=== PATIENT | female | born 1990 | race Caucasian/White ===

== ENCOUNTER 2020-04-22 10:20 | Outpatient (CLI) | payer OTHER, SELFPAY ==
[2020-04-22] VITALS (13 sets, daily range): BP systolic 135–153; BP diastolic 72–88; PULSE 75–90; O2SAT 82–99; BMI 33.5
[2020-04-22 11:07] LABS: Hemoglobin 10.7 g/dL (12.0-15.0); Mean Corp Hgb Conc 34.5 g/dL (32-36); Mean Corpuscular Hgb 31.9 pg (27.0-32.0); Mean Corpuscular Volume 92.5 fL (81-99); Mean Platelet Vol. 9.3 fl (6.2-12.0); Platelet Count 232 K/mm3 (150-450); RBC Distribution Width CV 12.8 % (11.6-14.6); RBC Distribution Width SD 42.7 fl (35.1-43.9); Red Blood Count 3.35 M/mm3 (4.2-5.4); White Blood Count 10.6 K/mm3 (4.4-11.0)
[2020-04-22 11:27] LABS: Protein, Urine (Random) 28.5 mg/dL (<11.9); Protein:Creat Ratio 190 mg/g CRE (0-200)
[2020-04-22 11:40] LABS: AST(SGOT) 21 U/L (15-37); Alanine Aminotransfer ALT/SGPT 22 U/L (13-56); Creatinine, Serum 0.58 mg/dL (0.55-1.02); EST Glomerular Filtration Rate 127 mL/min (>60); Est Glom Filt Rate - Afr Amer 154 mL/min (>60); Estimated Creatinine Clearance 131.56 ml/min; Uric Acid 6.5 mg/dL (2.6-6.0)
[2020-04-22 11:53] LABS: Partial Thromboplast Time 25.3 Seconds (24.1-36.2); Prothrombin Time (Protime)PT. 12.4 SECONDS (11.7-14.9)
--- NOTE | 2020-05-09 09:33 | OB.TRI.NOTE ---
History of Present Illness Reason For Visit: rule out pre Date of Service: 04/22/20 Final JESSICA: 05/11/20 Gestational age: 37 Weeks and 2 Days Allergies No Known Allergies Allergy (Verified 04/22/20 11:12) Laboratory Studies: Laboratory Tests 04/22/20 04/22/20 04/22/20 Range/Units 10:45 10:45 10:45 WBC (4.4-11.0) K/mm3 RBC (4.2-5.4) M/mm3 Hgb (12.0-15.0) g/dL Hct (37-47) % MCV (81-99) fL MCH (27.0-32.0) pg MCHC (32-36) g/dL RDW Std Deviation (35.1-43.9) fl RDW Coeff of Adriana (11.6-14.6) % Plt Count (150-450) K/mm3 MPV (6.2-12.0) fl PT 12.4 (11.7-14.9) SECONDS INR 1.0 APTT 25.3 (24.1-36.2) Seconds Creatinine 0.58 (0.55-1.02) mg/dL Estim Creat Clear Calc 131.56 ml/min Est GFR (MDRD) Af Amer 154 (>60) mL/min Est GFR (MDRD) Non-Af 127 (>60) mL/min Uric Acid 6.5 H (2.6-6.0) mg/dL AST 21 (15-37) U/L ALT 22 (13-56) U/L U Random Total Protein 28.5 H (<11.9) mg/dL Urine Creatinine 150.00 (NO RANGE EST.) mg/dL Protein/Creatinin Ratio 190 (0-200) mg/g CRE 04/22/20 Range/Units 10:45 WBC 10.6 (4.4-11.0) K/mm3 RBC 3.35 L (4.2-5.4) M/mm3 Hgb 10.7 L (12.0-15.0) g/dL Hct 31.0 L (37-47) % MCV 92.5 (81-99) fL MCH 31.9 (27.0-32.0) pg MCHC 34.5 (32-36) g/dL RDW Std Deviation 42.7 (35.1-43.9) fl RDW Coeff of Adriana 12.8 (11.6-14.6) % Plt Count 232 (150-450) K/mm3 MPV 9.3 (6.2-12.0) fl PT (11.7-14.9) SECONDS INR APTT (24.1-36.2) Seconds Creatinine (0.55-1.02) mg/dL Estim Creat Clear Calc ml/min Est GFR (MDRD) Af Amer (>60) mL/min Est GFR (MDRD) Non-Af (>60) mL/min Uric Acid (2.6-6.0) mg/dL AST (15-37) U/L ALT (13-56) U/L U Random Total Protein (<11.9) mg/dL Urine Creatinine (NO RANGE EST.) mg/dL Protein/Creatinin Ratio (0-200) mg/g CRE Physical Exam Vitals: Vital Signs Pulse BP Pulse Ox 85 135/77 H 99 04/22/20 12:22 04/22/20 12:22 04/22/20 11:03 NST - FHR Rate Baby A Baseline: 135 Accelerations:: 15 x 15 Decelerations:: Variable NST Reactive:: Yes Uterine Activity:: quiet Impression/Plan Reactive NST for elevated BP in labor
== END 2020-04-22 12:30 | disposition home or self-care (01) ==
LOC: WPOUT 10:31 → WP 10:31
PROVIDERS: Obstetrics & Gynecology; PCP Family Medicine; Visit Provider Obstetrics & Gynecology
DX: O16.3 Unspecified maternal hypertension, third trimester (principal); Z3A.37 37 weeks gestation of pregnancy
CPT/HCPCS: 36415; 59025; 59050; 82565; 82570; 84156; 84450; 84460; 84550; 85027; 85610; 85730; 94760; 99218; G0378

== ENCOUNTER 2020-04-26 16:35 | Inpatient (IN) | payer OTHER, SELFPAY ==
[2020-04-22 10:33] VITALS: BMI 33.5
[2020-04-26] VITALS (77 sets, daily range): BP systolic 98–188; BP diastolic 56–96; PULSE 67–85; RESP 16–18; TEMP 36.2–37.1; O2SAT 97–100; BMI 34.2
[2020-04-26] MEDS: Lactated Ringers 1,000 ML 50 ML IV (17:10)
--- NOTE | 2020-04-26 17:28 | PCM.HP.OB ---
- Problem List (1) Gestational hypertension Status: Acute (2) History of depression Status: Acute (3) History of thyroidectomy Status: Acute (4) History of delivery Status: Acute (5) Lab test positive for detection of COVID-19 virus Status: Acute (6) Encounter for induction of labor Status: Acute (7) Rubella non-immune status, antepartum Status: Acute History Date of Admission: 04/26/20 Final JESSICA: 05/11/20 Gestational age: 37 Weeks and 6 Days History of this : This is a 29 year-old, G [2], P [0101], at 37 weeks 1 day gestational age. Presented to office visit today for routine care. Initial BP elevated 183/90 with repeat average BP 152/91. Patient with headache, no visual changes or RUQ abdominal pain. COVID positive result on 04/17/20, 9 days post results. Decision for medically indicated induction of labor due to gestational HTN and rule out preeclampsia. history of history of at 36w2d, declined david during . Hypothyroidism s/p thyroidectomy, history of depression, history of gestational diabetes in previous . Allergies No Known Allergies Allergy (Verified 04/22/20 11:12) Home Medications: Home Medications Benadryl 25 mg PO QHS PRN 04/22/20 Fluoxetine [Prozac] 20 mg PO DAILY 04/22/20 Levothyroxine [Synthroid] 175 mcg PO DAILY 04/22/20 Prenatabs FA 1 tab PO DAILY 04/22/20 Famotidine [Acid Controller] 10 mg PO BID 04/26/20 Smoking Status: Never smoker Alcohol: None Substance Use Type: Sleep Aides Number of Fetus(es): 1 NST - FHR Rate Baby A Baseline: 140 Variability:: Moderate Accelerations:: 15 x 15 Decelerations:: None FHR Category:: Category I Uterine Activity:: none History Past Pregnancies: Past Pregnancies Delivery Date Name GA/ Weeks Outcome Route Wt Infant Sex Labor Length Anesthesia Delivery Location Provider FOB Labs: GBS negative 1hr GCT 131 normal RPR non reactive Rubella non immune HBsAG negative HIV negative A positive, antibody screen negative Hep C negative Urine tox screen negative Expected Infant Delivery Method: Spontaneous Vaginal Review of Systems Constitutional: Denies: Chills, Fever, Weight Change Eyes: Denies: Blurred vision, Double vision, Vision Change HEENT: Reports: Head Aches - Having headache, denies any visual changes. Persistent headache all day.. Denies: Sinus Congestion, Sinus Drainage Cardiovascular: Denies: Chest Pain, Palpitations Respiratory: Denies: Cough, Shortness of breath at rest, Sputum production Gastrointestinal: Denies: Abdominal Pain, Nausea, Vomiting Genitourinary: Denies: Dysuria Musculoskeletal: Denies: Joint Pain, Joint Tenderness Skin: Denies: Rash, Wounds Neurological: Denies: Numbness, Tingling, Focal weakness Psychiatric: Denies: Anxiety, Depression, Homicidal Ideations, Suicidal Ideations Hematologic/ Lymphatic: Denies: Easy Bruising, Easy Bleeding Physical Exam Vitals: Vital Signs Pulse BP 82 159/75 H 04/26/20 17:27 04/26/20 17:27 General: Alert, Oriented x3, Cooperative HEENT: Atraumatic, Normocephalic Abdomen: Gravid - No RUQ pain Extremities:: No edema Neurological: - - Reflexes brisk +3/4 per nursing staff. . 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 Estimated gestational size: Appropriate for gestational size Presentation: Cephalic Cervix Dilation (cm): 4 Station: 0 Effacement (%): 80 Assessment/Plan All Active Problems Gestational hypertension (Acute) History of depression (Acute) History of thyroidectomy (Acute) History of delivery (Acute) Lab test positive for detection of COVID-19 virus (Acute) Encounter for induction of labor (Acute) Rubella non-immune status, antepartum (Acute) This is a 29 year-old, G [2], P [0101], at 37 weeks 6d gestational age by LMP A:Gestational HTN Headache Induction of Labor Category 1 FHT P: 1) Admit to labor and delivery from early term induction of labor due to Gestational HTN, rule out preeclampsia 2) COVID + 3) IV labs, NS per protocol, preeclampsia labs 4) Pitocin per protocol, continuous EFM 5) BP currently mild range, if BP increased will start hypertensive protocol and Magnesium 6) [facility] physician and notified of patient status. Consultation for care at this time.
[2020-04-26 17:32] LABS: Absolute Lymphocyte Count 2.68 X10^3/uL (0.83-4.51); Absolute Neutrophil Count 8.7 X10^3/uL (2.0-7.7); Basophil# 0.03 X10^3/uL; Basophil% 0.2 % (0-1); Eosinophil# 0.08 X10^3/uL; Eosinophils% 0.6 % (0-5); Hematocrit 30.8 % (37-47); Hemoglobin 10.7 g/dL (12.0-15.0); Lymphocyte # 2.68 X10^3/ul (4.0); Lymphocyte % 20.7 % (19-41); Mean Corp Hgb Conc 34.7 g/dL (32-36); Mean Corpuscular Hgb 31.9 pg (27.0-32.0); Mean Corpuscular Volume 91.9 fL (81-99); Mean Platelet Vol. 9.4 fl (6.2-12.0); Monocyte# 1.29 X10^3/uL; NRBC Flagged by Analyzer 0 % (0-5); Neutrophil # 8.71 X10^3/uL (2.7-7.7); Neutrophil % 67.3 % (47-70); Platelet Count 305 K/mm3 (150-450); RBC Distribution Width CV 12.7 % (11.6-14.6); RBC Distribution Width SD 42.3 fl (35.1-43.9); Red Blood Count 3.35 M/mm3 (4.2-5.4)
[2020-04-26] MEDS: Oxytocin 30 units/NS 500 ml 30 UNITS/500 ML IV.SOLN IV (17:34)
[2020-04-26 17:43] LABS: Protein, Urine (Random) 52.8 mg/dL (<11.9); Protein:Creat Ratio 564 mg/g CRE (0-200)
[2020-04-26] MEDS: Labetalol (Prefilled) 20 MG/4 ML IV (18:28)
[2020-04-26 18:30] LABS: AST(SGOT) 22 U/L (15-37); Alanine Aminotransfer ALT/SGPT 25 U/L (13-56); Creatinine, Serum 0.58 mg/dL (0.55-1.02); EST Glomerular Filtration Rate 128 mL/min (>60); Est Glom Filt Rate - Afr Amer 154 mL/min (>60); Estimated Creatinine Clearance 131.56 ml/min; Uric Acid 5.5 mg/dL (2.6-6.0)
[2020-04-26] MEDS: Magnesium Sulfate 4gm/100mL 4 GM/100 ML IV.SOLN. IV (18:42)
[2020-04-26] MEDS: Labetalol (Prefilled) 20 MG/4 ML 40 MG IV (18:45)
[2020-04-26] MEDS: Magnesium Sulfate 20 GM/500 ML BAG IV (19:01)
[2020-04-26] MEDS: Labetalol 200 MG Tablet PO (19:54)
[2020-04-26] MEDS: Lactated Ringers 500 ML 999 ML IV (21:42)
[2020-04-26] MEDS: Mag Hydrox/Al Hydrox/Simeth 30 ML UDC PO (21:42)
[2020-04-26] MEDS: Acetaminophen 500 MG Tablet PO (21:42)
[2020-04-26] MEDS: Ondansetron 4 MG/2 ML Vial IV (22:42)
[2020-04-26] MEDS: fentaNYL-bupivacaine (epidural) 100 ML BAG EPIDURAL (22:59)
[2020-04-27] VITALS (72 sets, daily range): BP systolic 99–140; BP diastolic 46–93; PULSE 66–89; RESP 16–18; TEMP 36.1–37.3; O2SAT 89–100
[2020-04-27] MEDS: fentaNYL-bupivacaine (epidural) 100 ML BAG EPIDURAL (03:22)
[2020-04-27] MEDS: Acetaminophen 500 MG Tablet PO (04:42)
[2020-04-27] MEDS: Magnesium Sulfate 20 GM/500 ML BAG IV ×3 (04:42→23:47)
[2020-04-27] MEDS: Ondansetron 4 MG/2 ML Vial IV (07:46)
[2020-04-27] MEDS: Labetalol 200 MG Tablet PO ×2 (07:50→22:22)
[2020-04-27] MEDS: Oxytocin 30 units/NS 500 ml 30 UNITS/500 ML IV.SOLN 334 UNITS IV (08:47)
[2020-04-27] MEDS: miSOPROStol 200 MCG Tablet 1000 MCG RECTAL (09:01)
--- NOTE | 2020-04-27 09:06 | PCM.OPRPT ---
Vaginal Delivery Maternal Presentation: Medically Indicated Induction Method of Induction: Pitocin, Amniotomy Amniotic Membrane Rupture Type: Artificial Amniotic Fluid Description: Clear Final JESSICA: 05/11/20 Gestational age: 38 Weeks and 0 Days Date of Procedure: 04/27/20 Pre-Operative Diagnosis: labor, preeclampsia with severe features Post-Operative Diagnosis: same Surgery/ Procedure Performed: Spontaneous Vaginal Delivery Type of Anesthesia: Epidural Description of Procedure: A vigorous male was delivered CHUCK over a second-degree perineal laceration. The baby delivered easily through the loose nuchal cord x1. The remainder the infant was delivered with maternal pushing and gentle traction only in less than 15 seconds. The Pitocin infusion was initiated for active management of the third stage. The cord was clamped and cut after 1 minute. The infant was attended to by the waiting nursing staff. The placenta was delivered spontaneously and intact. The cervix and vagina were intact. The second-degree perineal laceration was repaired with 3-0 Vicryl suture in a running standard fashion. There was mild atony without hemorrhage. Fundal massage was performed. Patient was given Cytotec 1000 mcg rectally x1. Will remain on the magnesium for 24 hours due to preeclampsia with severe features. Sponge and needle counts were correct. A vaginal sweep was completed by me. Delivery time 0844. Presentation: CHUCK Placental Delivery Description: Spontaneous Placenta Disposition: [facility] Cord Vessel Description: 3 Vessels Nuchal Cord Compression: Without compression Cord Entanglement: Around neck x 1, loose Drain: Scott to straight drain - removed during second stage Estimated Blood Loss: 500 A gender: Male - Kaveh (1 minute): 8 (5 minute): 9 Episiotomy Description: None Laceration: 2nd degree - perineal Medications given after delivery: IV Pitocin Complications: None
[2020-04-27] MEDS: FLUoxetine 20 MG Capsule PO (11:34)
[2020-04-27] MEDS: Levothyroxine 175 MCG Tablet PO (11:34)
[2020-04-27] MEDS: 0.9% Saline Lock 10 ML Syringe IV (11:34)
[2020-04-27] MEDS: Acetaminophen 500 MG Tablet 1000 MG PO (13:02)
[2020-04-27] MEDS: Naproxen 250 MG Tablet 500 MG PO (18:31)
[2020-04-28] VITALS (33 sets, daily range): BP systolic 108–158; BP diastolic 51–72; PULSE 71–89; RESP 14–18; TEMP 35.8–36.9; O2SAT 94–99
[2020-04-28] MEDS: Acetaminophen 500 MG Tablet 1000 MG PO (00:31)
[2020-04-28] MEDS: Levothyroxine 175 MCG Tablet PO (05:35)
[2020-04-28 05:47] LABS: Hematocrit 24.8 % (37-47); Hemoglobin 8.1 g/dL (12.0-15.0); Mean Corp Hgb Conc 32.7 g/dL (32-36); Mean Corpuscular Hgb 31.4 pg (27.0-32.0); Mean Corpuscular Volume 96.1 fL (81-99); Mean Platelet Vol. 8.9 fl (6.2-12.0); Platelet Count 251 K/mm3 (150-450); RBC Distribution Width SD 45.8 fl (35.1-43.9); Red Blood Count 2.58 M/mm3 (4.2-5.4); White Blood Count 18.5 K/mm3 (4.4-11.0)
[2020-04-28] MEDS: Naproxen 250 MG Tablet 500 MG PO (06:27)
--- NOTE | 2020-04-28 08:42 | PN.OBGYN_ITS ---
Patient Problems: Active and Suspected Problems Gestational hypertension (Acute) History of depression (Acute) History of thyroidectomy (Acute) History of delivery (Acute) Lab test positive for detection of COVID-19 virus (Acute) Encounter for induction of labor (Acute) Rubella non-immune status, antepartum (Acute) Subjective: Patient seen at bedside. Feeling good today. Denies any headache, vision changes, SOB, chest pain or dizziness. Patient anxious for magnesium sulfate to be stopped. going well. Pain controlled. Desires discharge tomorrow. - Physical Exam Vitals/I&O's: Vital Signs Temp Pulse Resp BP Pulse Ox 97.9 F 83 16 132/62 H 99 04/28/20 07:20 04/28/20 07:27 04/28/20 07:20 04/28/20 07:27 04/28/20 07:27 Oxygen Delivery Method Room Air Weight: 212 lb 8.41 oz Body Mass Index (BMI) 34.2 Intake and Output for Last 24 Hours 04/26/20 04/27/20 04/28/20 23:59 23:59 23:59 Intake Total 1369.14 / 1369.14 3468.58 / 3468.58 1177.49 / 1177.49 Output Total 900 / 900 2505 / 2705 1000 / 1000 Balance 469.14 / 469.14 963.58 / 763.58 177.49 / 177.49 General: Alert, Oriented x3, Cooperative Oral: Moist Mucosa Lungs: Clear to auscultation, Normal air movement Cardiovascular: Regular rate Abdomen: Soft, Non Tender Extremities: No edema, Capillary Refill Less than 3 Seconds, No Calf Tenderness Skin: No rashes Neurological: Cranial nerves II-XII grossly intact Laboratory Results 04/28/20 05:40: WBC 18.5 H, RBC 2.58 L, Hgb 8.1 L, Hct 24.8 L, MCV 96.1, MCH 31.4, MCHC 32.7 D, RDW Std Deviation 45.8 H, RDW Coeff of Adriana 13.0, Plt Count 251, MPV 8.9 Current Medications Acetaminophen (Acetaminophen 500 Mg Tablet) 1,000 mg PO Q8H PRN PRN PRN Reason: Pain Score 1-10 Last Admin: 04/28/20 00:31 Dose: 1,000 mg Documented by: Bisacodyl (Bisacodyl 10 Mg Suppository) 10 mg RECTAL UD PRN PRN Reason: If no BM Dibucaine (Dibucaine 30 Gm Tube) 1 applic TOPICAL TID PRN PRN; Protocol PRN Reason: Discomfort Fluoxetine HCl (Fluoxetine 20 Mg Capsule) 20 mg PO DAILY [facility] Last Admin: 04/27/20 11:34 Dose: 20 mg Documented by: Hydrocortisone (Hydrocortisone 2.5% Crm) 1 applic TOPICAL TID PRN PRN; Protocol PRN Reason: Discomfort Magnesium Sulfate (20gm/500ml) 20 gm in 500 mls @ 50 mls/hr IV .Q10H [facility]; Protocol Last Infusion: 04/28/20 07:20 Dose: 2 gm/hr, 50 mls/hr Documented by: Labetalol HCl (Labetalol 200 Mg Tablet) 200 mg PO BID [facility] Last Admin: 04/27/20 22:22 Dose: 200 mg Documented by: Levothyroxine Sodium (Levothyroxine 175 Mcg Tablet) 175 mcg PO DAILY@0600 [facility] Last Admin: 04/28/20 05:35 Dose: 175 mcg Documented by: Methylergonovine Maleate (Methylergonovine 0.2 Mg/Ml Ampul) 0.2 mg IM X1 PRN PRN Reason: Excess bleeding/uterine atony Naproxen (Naproxen 250 Mg Tablet) 500 mg PO Q8H PRN PRN PRN Reason: Pain Score 1-10 Last Admin: 04/28/20 06:27 Dose: 500 mg Documented by: Ondansetron HCl (Ondansetron 4 Mg/2 Ml Vial) 4 mg IV Q4H PRN PRN PRN Reason: Nausea Prochlorperazine Edisylate (Prochlorperazine 10 Mg/2 Ml Vial) 10 mg IV Q6H PRN PRN PRN Reason: NAUSEA/VOMITING Senna/Docusate Sodium (Senna/Docusate Sodium 1 Tablet) 1 - 2 tablet PO DAILY PRN PRN PRN Reason: Constipation Simethicone (Simethicone 80 Mg Tablet) 80 mg PO PCHS PRN PRN Reason: Indigestion/Stomach pain Sodium Chloride (0.9% Saline Lock 10 Ml Syringe) 5 - 15 ml IV UD PRN PRN Reason: SALINE FLUSH Last Admin: 04/27/20 11:34 Dose: 10 ml Documented by: Medical Necessity - Tobacco Use Smoking Status: Never smoker Assessment/Plan All Active Problems Gestational hypertension (Acute) History of depression (Acute) History of thyroidectomy (Acute) History of delivery (Acute) Lab test positive for detection of COVID-19 virus (Acute) Encounter for induction of labor (Acute) Rubella non-immune status, antepartum (Acute) PPD 1 preeclampsia with severe features Magnesium sulfate IV discontinued at 0845 Continue BP monitoring Continue Labetalol 200 mg PO BID Routine care BP protocol if needed Discussed with Dr. Ocampo- collaborating physician Anticipate discharge home tomorrow with BP check in 1 week
[2020-04-28] MEDS: FLUoxetine 20 MG Capsule PO (10:00)
[2020-04-28] MEDS: Labetalol 200 MG Tablet PO ×2 (10:00→22:04)
[2020-04-29] VITALS (20 sets, daily range): BP systolic 113–177; BP diastolic 65–81; PULSE 68–84; RESP 14–16; TEMP 36.2–37.1; O2SAT 90–99
[2020-04-29] MEDS: Levothyroxine 175 MCG Tablet PO (05:41)
--- NOTE | 2020-04-29 08:08 | PCM.PN.OB ---
Patient Problems: Active and Suspected Problems Gestational hypertension (Acute) History of depression (Acute) History of thyroidectomy (Acute) History of delivery (Acute) Lab test positive for detection of COVID-19 virus (Acute) Encounter for induction of labor (Acute) Rubella non-immune status, antepartum (Acute) Subjective: Patient seen at bedside. Eating breakfast tray. Feeling good. Denies any headaches, visual changes or RUQ pain. Ambulating and voiding without difficulty. infant with support from . Infant under lights for bilirubin levels at this time. Patient desires discharge home as soon as infant is cleared. Lochia decreasing. - Physical Exam Vitals/I&O's: Vital Signs Temp Pulse Resp BP Pulse Ox 97.6 F L 80 14 113/65 97 04/29/20 01:09 04/29/20 01:09 04/29/20 01:09 04/29/20 01:09 04/28/20 08:30 Oxygen Delivery Method Room Air Weight: 212 lb 8.41 oz Body Mass Index (BMI) 34.2 Intake and Output for Last 24 Hours 04/27/20 04/28/20 04/29/20 23:59 23:59 23:59 Intake Total 3468.58 / 3468.58 1300.00 / 1300.00 1900 / 1900 Output Total 2505 / 2705 1800 / 1800 Balance 963.58 / 763.58 -500.00 / -500.00 1900 / 1900 General: Alert, Oriented x3 Oral: Moist Mucosa Lungs: Normal air movement Cardiovascular: Regular rate Abdomen: Soft, Non Tender Extremities: Capillary Refill Less than 3 Seconds, No Calf Tenderness Neurological: Cranial nerves II-XII grossly intact Current Medications Acetaminophen (Acetaminophen 500 Mg Tablet) 1,000 mg PO Q8H PRN PRN PRN Reason: Pain Score 1-10 Last Admin: 04/28/20 00:31 Dose: 1,000 mg Documented by: Bisacodyl (Bisacodyl 10 Mg Suppository) 10 mg RECTAL UD PRN PRN Reason: If no BM Dibucaine (Dibucaine 30 Gm Tube) 1 applic TOPICAL TID PRN PRN; Protocol PRN Reason: Discomfort Fluoxetine HCl (Fluoxetine 20 Mg Capsule) 20 mg PO DAILY [facility] Last Admin: 04/28/20 10:00 Dose: 20 mg Documented by: Hydrocortisone (Hydrocortisone 2.5% Crm) 1 applic TOPICAL TID PRN PRN; Protocol PRN Reason: Discomfort Labetalol HCl (Labetalol 200 Mg Tablet) 200 mg PO BID [facility] Last Admin: 04/28/20 22:04 Dose: 200 mg Documented by: Levothyroxine Sodium (Levothyroxine 175 Mcg Tablet) 175 mcg PO DAILY@0600 [facility] Last Admin: 04/29/20 05:41 Dose: 175 mcg Documented by: Methylergonovine Maleate (Methylergonovine 0.2 Mg/Ml Ampul) 0.2 mg IM X1 PRN PRN Reason: Excess bleeding/uterine atony Naproxen (Naproxen 250 Mg Tablet) 500 mg PO Q8H PRN PRN PRN Reason: Pain Score 1-10 Last Admin: 04/28/20 06:27 Dose: 500 mg Documented by: Ondansetron HCl (Ondansetron 4 Mg/2 Ml Vial) 4 mg IV Q4H PRN PRN PRN Reason: Nausea Prochlorperazine Edisylate (Prochlorperazine 10 Mg/2 Ml Vial) 10 mg IV Q6H PRN PRN PRN Reason: NAUSEA/VOMITING Senna/Docusate Sodium (Senna/Docusate Sodium 1 Tablet) 1 - 2 tablet PO DAILY PRN PRN PRN Reason: Constipation Simethicone (Simethicone 80 Mg Tablet) 80 mg PO PCHS PRN PRN Reason: Indigestion/Stomach pain Sodium Chloride (0.9% Saline Lock 10 Ml Syringe) 5 - 15 ml IV UD PRN PRN Reason: SALINE FLUSH Last Admin: 04/27/20 11:34 Dose: 10 ml Documented by: Medical Necessity - Tobacco Use Smoking Status: Never smoker Assessment/Plan All Active Problems Gestational hypertension (Acute) History of depression (Acute) History of thyroidectomy (Acute) History of delivery (Acute) Lab test positive for detection of COVID-19 virus (Acute) Encounter for induction of labor (Acute) Rubella non-immune status, antepartum (Acute) A/P PPD #2 2nd degree laceration BP's within normal range Continue Labetalol 200 mg BID Routine care Discharge home with pre-e precautions and follow up in office [address] Garcia involved in plan of care
--- NOTE | 2020-04-29 08:17 | DCINST_ITS ---
Discharge Diet: No Restrictions Additional Instructions: If you experience any of the following, contact your healthcare provider. * Bleeding that soaks a pad every hour for 2 hours * Fever 100.4 or higher * Unrelieved incision or abdominal pain * Swelling, redness, discharge or bleeding from your incision or episi otomy site * Your incision begins to separate * Problems urinating (including inability to urinate or burning while urinating). * Visual changes * Severe headache * Flu-like symptoms * Pain or redness in one of both of your breasts * Pain, warmth, tenderness or swelling in your legs, especially the calf area * Frequent nausea and vomiting * Symptoms of depression or anxiety If you experience any of the following, call 911 or go to the nearest Emergency Room. * Chest pain * Problems breathing * Seizure activity * Partial or complete paralysis of a body part, slurred speech, weakness or drooping of the face, or a sudden inability to walk or hold your balance Allergies/Adverse Reactions: Allergies No Known Allergies Allergy (Verified 04/22/20 11:12) Medications to take at Discharge Fluoxetine [Prozac] 20 mg PO DAILY 04/22/20 Prenatabs FA 1 tab PO DAILY 04/22/20 Labetalol [Trandate (Beta Los)] 200 mg PO BID 30 Days #60 tab 04/29/20 Levothyroxine [Synthroid] 175 mcg PO DAILY@0600 tab 04/29/20 The following prescriptions were given: Labetalol [Trandate (Beta Los)] 200 mg PO BID 30 Days #60 tab Transmission Status: Pending to [facility] Please Follow Up With: Lyla Campbell MD When: 1 week for BP check Primary Care Physician: Jaydon Worrell MD [Primary Care Provider] - Test Results: Test results from this visit will be discussed in further detail at your follow- up appointment, if applicable.
--- NOTE | 2020-04-29 08:17 | PCM.DCVAG ---
Discharge Diet: No Restrictions Additional Instructions: If you experience any of the following, contact your healthcare provider. Bleeding that soaks a pad every hour for 2 hours Fever 100.4 or higher Unrelieved incision or abdominal pain Swelling, redness, discharge or bleeding from your incision or episiotomy site Your incision begins to separate Problems urinating (including inability to urinate or burning while urinating). Visual changes Severe headache Flu-like symptoms Pain or redness in one of both of your breasts Pain, warmth, tenderness or swelling in your legs, especially the calf area Frequent nausea and vomiting Symptoms of depression or anxiety If you experience any of the following, call 911 or go to the nearest Emergency Room. Chest pain Problems breathing Seizure activity Partial or complete paralysis of a body part, slurred speech, weakness or drooping of the face, or a sudden inability to walk or hold your balance Allergies/Adverse Reactions: Allergies No Known Allergies Allergy (Verified 04/22/20 11:12) Medications to take at Discharge Fluoxetine [Prozac] 20 mg PO DAILY 04/22/20 Prenatabs FA 1 tab PO DAILY 04/22/20 Labetalol [Trandate (Beta Los)] 200 mg PO BID 30 Days #60 tab 04/29/20 Levothyroxine [Synthroid] 175 mcg PO DAILY@0600 tab 04/29/20 The following prescriptions were given: Labetalol [Trandate (Beta Los)] 200 mg PO BID 30 Days #60 tab Transmission Status: Pending to [facility] Please Follow Up With: Lyla Campbell MD When: 1 week for BP check Primary Care Physician: Jaydon Worrell MD [Primary Care Provider] - Test Results: Test results from this visit will be discussed in further detail at your follow-up appointment, if applicable.
[2020-04-29] MEDS: FLUoxetine 20 MG Capsule PO (09:23)
[2020-04-29] MEDS: Labetalol 200 MG Tablet PO ×2 (09:23→20:05)
[2020-04-29 20:19] LABS: Hematocrit 26.1 % (37-47); Hemoglobin 8.2 g/dL (12.0-15.0); Mean Corp Hgb Conc 31.4 g/dL (32-36); Mean Corpuscular Hgb 31.1 pg (27.0-32.0); Mean Corpuscular Volume 98.9 fL (81-99); Mean Platelet Vol. 8.9 fl (6.2-12.0); Platelet Count 306 K/mm3 (150-450); RBC Distribution Width CV 13.2 % (11.6-14.6); RBC Distribution Width SD 46.9 fl (35.1-43.9); Red Blood Count 2.64 M/mm3 (4.2-5.4); White Blood Count 14.5 K/mm3 (4.4-11.0)
[2020-04-29 20:30] LABS: International Normalized Ratio 0.9; Prothrombin Time (Protime)PT. 11.9 SECONDS (11.7-14.9)
[2020-04-29 20:31] LABS: Partial Thromboplast Time 26.8 Seconds (24.1-36.2)
[2020-04-29 20:32] LABS: AST(SGOT) 29 U/L (15-37); Alanine Aminotransfer ALT/SGPT 30 U/L (13-56); Creatinine, Serum 0.63 mg/dL (0.55-1.02); EST Glomerular Filtration Rate 116 mL/min (>60); Est Glom Filt Rate - Afr Amer 140 mL/min (>60); Estimated Creatinine Clearance 121.12 ml/min; Uric Acid 6.1 mg/dL (2.6-6.0)
--- NOTE | 2020-04-29 20:44 | NURSING ---
[address] C Plotts notified of two elevated BP values 10min apart. Pt asymptomatic. [email or web address] nguyen discussed POC with to give 200mg PO labetalol now and recheck BP 30min after, draw PIH panel, d/c discharge home order, and call for any further issues.
--- NOTE | 2020-04-29 22:01 | NURSING ---
2052 Updated on BP values of 168/79 with a repeat of 159/72. Plan to change labetalol 200mg to TID, no need for protein-creatinine ration and call provider with any other hypertensive values per protocol
[2020-04-30] VITALS (15 sets, daily range): BP systolic 122–178; BP diastolic 60–79; PULSE 71–89; RESP 16–18; TEMP 36.3–37.1; O2SAT 98
[2020-04-30] MEDS: NIFEdipine 30 MG Tablet PO (04:02)
[2020-04-30] MEDS: Levothyroxine 175 MCG Tablet PO (06:13)
--- NOTE | 2020-04-30 08:55 | PCM.PN.OB ---
Patient Problems: Active and Suspected Problems Gestational hypertension (Acute) History of depression (Acute) History of thyroidectomy (Acute) History of delivery (Acute) Lab test positive for detection of COVID-19 virus (Acute) Encounter for induction of labor (Acute) Rubella non-immune status, antepartum (Acute) Subjective: Patient is doing well this morning. No headaches, vision changes, upper abdominal pain. Bleeding is normal. She is breast-feeding some nipple pain. Ambulating and voiding without difficulty. Tolerating regular diet without nausea or vomiting. - Physical Exam Vitals/I&O's: Vital Signs Temp Pulse Resp BP Pulse Ox 98.5 F 78 18 136/73 H 98 04/30/20 02:08 04/30/20 08:36 04/30/20 02:08 04/30/20 08:36 04/30/20 02:08 Oxygen Delivery Method Room Air Weight: 212 lb 8.41 oz Body Mass Index (BMI) 34.2 Intake and Output for Last 24 Hours 04/28/20 04/29/20 04/30/20 23:59 23:59 23:59 Intake Total 1300.00 / 1300.00 1900 / 1900 Output Total 1800 / 1800 Balance -500.00 / -500.00 1900 / 1900 General: Alert, No apparent distress HEENT: Atraumatic Abdomen: Soft, Non Tender, - - FF@U-2 Extremities: No Calf Tenderness Skin: No rashes Neurological: Neuro grossly intact Psych/Mental Status: Normal Affect, Appropriate Laboratory Results 04/29/20 20:10: WBC 14.5 H, RBC 2.64 L, Hgb 8.2 L, Hct 26.1 L, MCV 98.9, MCH 31.1, MCHC 31.4 L, RDW Std Deviation 46.9 H, RDW Coeff of Adriana 13.2, Plt Count 306, MPV 8.9 04/29/20 20:10: PT 11.9, INR 0.9, APTT 26.8 04/29/20 20:10: Creatinine 0.63, Estim Creat Clear Calc 121.12, Est GFR (MDRD) Af Amer 140, Est GFR (MDRD) Non-Af 116, Uric Acid 6.1 H, AST 29, ALT 30 Current Medications Acetaminophen (Acetaminophen 500 Mg Tablet) 1,000 mg PO Q8H PRN PRN PRN Reason: Pain Score 1-10 Last Admin: 04/28/20 00:31 Dose: 1,000 mg Documented by: Bisacodyl (Bisacodyl 10 Mg Suppository) 10 mg RECTAL UD PRN PRN Reason: If no BM Dibucaine (Dibucaine 30 Gm Tube) 1 applic TOPICAL TID PRN PRN; Protocol PRN Reason: Discomfort Fluoxetine HCl (Fluoxetine 20 Mg Capsule) 20 mg PO DAILY [facility] Last Admin: 04/29/20 09:23 Dose: 20 mg Documented by: Hydrocortisone (Hydrocortisone 2.5% Crm) 1 applic TOPICAL TID PRN PRN; Protocol PRN Reason: Discomfort Labetalol HCl (Labetalol 100 Mg Tablet) 300 mg PO BID [facility] Levothyroxine Sodium (Levothyroxine 175 Mcg Tablet) 175 mcg PO DAILY@0600 [facility] Last Admin: 04/30/20 06:13 Dose: 175 mcg Documented by: Methylergonovine Maleate (Methylergonovine 0.2 Mg/Ml Ampul) 0.2 mg IM X1 PRN PRN Reason: Excess bleeding/uterine atony Naproxen (Naproxen 250 Mg Tablet) 500 mg PO Q8H PRN PRN PRN Reason: Pain Score 1-10 Last Admin: 04/28/20 06:27 Dose: 500 mg Documented by: Nifedipine (Nifedipine 30 Mg Tablet) 30 mg PO DAILY [facility] Last Admin: 04/30/20 04:02 Dose: 30 mg Documented by: Ondansetron HCl (Ondansetron 4 Mg/2 Ml Vial) 4 mg IV Q4H PRN PRN PRN Reason: Nausea Prochlorperazine Edisylate (Prochlorperazine 10 Mg/2 Ml Vial) 10 mg IV Q6H PRN PRN PRN Reason: NAUSEA/VOMITING Senna/Docusate Sodium (Senna/Docusate Sodium 1 Tablet) 1 - 2 tablet PO DAILY PRN PRN PRN Reason: Constipation Simethicone (Simethicone 80 Mg Tablet) 80 mg PO PCHS PRN PRN Reason: Indigestion/Stomach pain Sodium Chloride (0.9% Saline Lock 10 Ml Syringe) 5 - 15 ml IV UD PRN PRN Reason: SALINE FLUSH Last Admin: 04/27/20 11:34 Dose: 10 ml Documented by: Medical Necessity - Tobacco Use Smoking Status: Never smoker Assessment/Plan All Active Problems Gestational hypertension (Acute) History of depression (Acute) History of thyroidectomy (Acute) History of delivery (Acute) Lab test positive for detection of COVID-19 virus (Acute) Encounter for induction of labor (Acute) Rubella non-immune status, antepartum (Acute) Pt is day 3 from a vaginal delivery. -Pressures have not been well controlled on labetalol. Started Procardia 30 this morning. Will also increase labetalol to 300 twice daily. She has no preeclampsia symptoms. Preeclampsia labs were drawn last night within normal limits. -Other than uncontrolled BP's she is meeting all milestones for discharge. -Dispo: Discussed with patient discharge tomorrow given recent severe range blood pressures. She is very tearful given that she is here in the hospital alone, and her is at home taking care of their toddler. Her has not been able to meet the new baby. She strongly desires discharge home today. Will reevaluate after dinnertime today. If blood pressures are well controlled throughout the day without any severe range BP's, will be okay for discharge given circumstance. She does have a blood pressure cuff at home to monitor her blood pressures.
[2020-04-30] MEDS: Labetalol 100 MG Tablet 300 MG PO (10:28)
[2020-04-30] MEDS: FLUoxetine 20 MG Capsule PO (10:43)
--- NOTE | 2020-04-30 14:10 | DCINST_ITS ---
Discharge Diet: No Restrictions Discharge Activity: May Shower, May Take a Tub Bath May resume sexual activity in: 6 weeks Ice area for (Minutes): 15 Weight Bearing Status: Weight bearing as tolerated Lifting Restrictions: Nothing heavier than baby for 2 weeks Call your doctor if you observe: Fever of 101 or Higher, Inability to urinate, Inability to have a bowel movement, Using more than one pad per hour, Shortness of breath, Dizziness, Fainting spells, Swelling in the ankles, Chest pain, Increased palpitations (irregular heartbeat), Calf discomfort, Uncontrolled pain Additional Instructions: - Please check your blood pressure twice daily over the weekend and before your blood pressure check in the office. Call the after hours line if your blood pressure is 160/110 or higher. If you experience any of the following, contact your healthcare provider. * Bleeding that soaks a pad every hour for 2 hours * Fever 100.4 or higher * Unrelieved incision or abdominal pain * Swelling, redness, discharge or bleeding from your incision or episiotomy site * Your incision begins to separate * Problems urinating (including inability to urinate or burning while urinating). * Visual changes * Severe headache * Flu-like symptoms * Pain or redness in one of both of your breasts * Pain, warmth, tenderness or swelling in your legs, especially the calf area * Frequent nausea and vomiting * Symptoms of depression or anxiety If you experience any of the following, call 911 or go to the nearest Emergency Room. * Chest pain * Problems breathing * Seizure activity * Partial or complete paralysis of a body part, slurred speech, weakness or drooping of the face, or a sudden inability to walk or hold your balance Allergies/Adverse Reactions: Allergies No Known Allergies Allergy (Verified 04/22/20 11:12) Medications to take at Discharge Fluoxetine [Prozac] 20 mg PO DAILY 04/22/20 Prenatabs FA 1 tab PO DAILY 04/22/20 Labetalol [Trandate ([place]eta [place])] 200 mg PO BID 30 Days #60 tab 04/29/20 Levothyroxine [Synthroid] 175 mcg PO DAILY@0600 tab 04/29/20 Labetalol [Trandate (Beta [place])] 300 mg PO BID #90 tab 04/30/20 Nifedipine [Procardia Xl] 30 mg PO DAILY #30 tab.er.24 04/30/20 The following prescriptions were given: Nifedipine [Procardia Xl] 30 mg PO DAILY #30 tab.er.24 Transmission Status: Pending to [facility] Labetalol [Trandate (Beta [place])] 300 mg PO BID #90 tab Transmission Status: Pending to [facility] Labetalol [Trandate (Beta Los)] 200 mg PO BID 30 Days #60 tab Transmission Status: Received by [facility] When: 1 week for a blood pressure check. Then in 6 weeks for visit. Primary Care Physician: Jaydon Worrell MD [Primary Care Provider] - Test Results: Test results from this visit will be discussed in further detail at your follow- up appointment, if applicable.
== END 2020-04-30 16:30 | disposition home or self-care (01) | DRG 805 ==
PROVIDERS: Advanced Practice Midwife; Obstetrics & Gynecology; Admitting Provider Obstetrics & Gynecology; PCP Family Medicine; Referring Provider Obstetrics & Gynecology; Visit Provider Obstetrics & Gynecology
DX: O14.14 Severe pre-eclampsia complicating childbirth (principal); U07.1 COVID-19; Z37.0 Single live birth; O98.52 Other viral diseases complicating childbirth; O70.1 Second degree perineal laceration during delivery; O69.81X0 Labor and delivery complicated by cord around neck, without compression, not applicable or unspecified; O62.2 Other uterine inertia; Z3A.37 37 weeks gestation of pregnancy
CPT/HCPCS: 59025; 59050; 82565; 82570; 84156; 84450; 84460; 84550; 85025; 85027; 85610; 85730; 86850; 86900; 86901; 99218; J7120; A4216; G0378; J2405

== ENCOUNTER 2020-05-13 10:57 | Day surgery (SDC) | payer OTHER, SELFPAY ==
[2020-04-26 16:56] VITALS: BMI 34.2
--- NOTE | 2020-05-11 11:54 | HP.PCM_ITS ---
History and Physical Date of Admission: 05/13/20 HPI: The patient is a 29 year old female presenting for pre-operative visit. She is scheduled for?laparoscopic bilateral salpingectomy, for?sterilization on?05/13/2020. ??Procedure discussed along with risks, benefits and complications. ?Other alternatives discussed for management. Consent form signed??Yes.? PAST MEDICAL HISTORY PAST MEDICAL HISTORY Diagnosis Date ? Depression ? ? Diabetes, gestational ? ? H/O vitamin D deficiency ? ? Hypothyroid ? ? throid removed ? ? PAST SURGICAL HISTORY PAST SURGICAL HISTORY Procedure Laterality Date ? EXTRACTION, ERUPTED TOOTH OR EXPOSED ROOT (ELEVATION AND/OR FORCEPS REMOVAL) ? ? ? [place] teeth extraction ? THYROIDECTOMY ? 03/21/2018 ? removed whole thyroid ? ? CURRENT MEDICATIONS Current Outpatient Medications Medication Sig Dispense Refill ? NIFEdipine ER (PROCARDIA XL) 30 mg 24 hr tablet ? famotidine (PEPCID ORAL) Take by mouth. ? ? ? levothyroxine (SYNTHROID) 175 mcg tablet ? Lhqoccrk-Eh-Jgm-Fe-FA ( VITAMIN) tab Take 1 tablet by mouth. ? ? ? diphenhydrAMINE (BENADRYL) 25 mg tablet Take 25 mg by mouth. ? ? ? FLUoxetine (PROZAC) 20 mg capsule Take 1 capsule by mouth once daily. 30 capsule 1 ? No current facility-administered medications for this visit. ? ALLERGIES:?Patient has no known allergies. ? PERSONAL HISTORY:? SOCIAL HISTORY Social History ? Tobacco Use ? Smoking status: Never Smoker ? Smokeless tobacco: Never Used Substance Use Topics ? Alcohol use: Not Currently ? ? Comment: seldom ? Drug use: No ? FAMILY HISTORY:? FAMILY HISTORY FAMILY HISTORY Problem Relation Age of Onset ? Ovarian cancer Mother 50 ? other (WPW) Mother ? ? Hypertension Father ? ? other (ovarian cysts) Sister ? ? Thyroid Maternal Grandmother ? ? Cancer Maternal Grandmother ?skin cancer ? COPD Maternal Grandfather ? ? Diabetes Maternal Grandfather ? ? Cancer Paternal Grandmother ? ? Alzheimer's Disease Paternal Grandfather ? ? REVIEW OF SYMPTOMS: GENERAL: denies fevers or chills ENDOCRINOLOGY: has not been on steroids Cardiology : denies palpitations or chest pain Respiratory: denies SOB or cough Hematology: denies history of prolonged bleeding or easy bruising or VTE Allergy: Denies history of personal or family history of allergy to anesthesia ? ? PHYSICAL EXAMINATION: ? VITALS:?Last menstrual period 08/05/2019, currently . ? GENERAL:??The patient is well nourished, well hydrated in no acute distress. ?, The patient is oriented to time, place, and person. NECK:?Supple. No lynphadenopathy, normal thyroid, no thyromegaly. LUNGS:?Clear to auscultation bilaterally. no wheezes, rhonchi or rales HEART:?Regular rate and rhythm, Normal heart sounds and No murmurs or gallops ? IMPRESSION:?sterilization request ? PLAN:???The risks/benefits/alternatives and personal involved for the planned?laparoscopic bilateral salpingectomy?were reviewed with the patient. Her questions were answered to her satisfaction and she desires to proceed. ?Consent was signed. ?I reviewed with her postop instructions and expectations. ? ? I have reviewed and updated past medical and surgical history, medications and allergies. This H&P was completed in my office on 05/11/2020. Procedure Criteria Procedure Type: Elective COVID Risk Discussion: The surgeon/proceduralist and patient have discussed in detail the risk of exposure to and/or potential harm posed by the COVID-19 virus with having a surgery/procedure at this time versus the risk of delaying the surgery/procedure. It is not possible to know either the risk of delaying the surgery or procedure or chance of getting an infection with perfect accuracy, but a joint decision was made between the patient and the surgeon/proceduralist to proceed at this time with the scheduled surgery/procedure as indicated on the consent form.
[2020-05-13 11:31] VITALS: BP 124/82; PULSE 80; RESP 16; TEMP 37; O2SAT 98; BMI 29.2
[2020-05-13] MEDS: Lactated Ringers 1,000 ML 100 ML IV (11:51)
[2020-05-13] MEDS: Celecoxib 200 MG Capsule 400 MG PO (11:52)
[2020-05-13] MEDS: Acetaminophen 500 MG Tablet 1000 MG PO (11:52)
[2020-05-13 11:59] LABS: Internal QC Validated? YES +Cl - CLEAR BKGD; Pregnancy, Serum, hCG Quali. NEGATIVE Negative
[2020-05-13 12:12] LABS: Hematocrit 36.1 % (37-47); Hemoglobin 11.8 g/dL (12.0-15.0); Mean Corp Hgb Conc 32.7 g/dL (32-36); Mean Corpuscular Hgb 30.6 pg (27.0-32.0); Mean Corpuscular Volume 93.5 fL (81-99); Mean Platelet Vol. 8.5 fl (6.2-12.0); Platelet Count 473 K/mm3 (150-450); RBC Distribution Width CV 12.9 % (11.6-14.6); RBC Distribution Width SD 43.8 fl (35.1-43.9); Red Blood Count 3.86 M/mm3 (4.2-5.4); White Blood Count 8.3 K/mm3 (4.4-11.0)
--- NOTE | 2020-05-13 12:40 | FALS_PTH ---
PATIENT: SAUD DUCKWORTH LOC: [facility] [place] U#:[id number] AGE/SX: 29/F ROOM: RE05/13/[address]: Dr. Lyla Campbell MD : [id number] BED: DIS: 05/13/2020 SPEC #: [id number] RECD: 05/13/20 15:09 STATUS: YOAN REArlen #: [id number] MAHOGANY: 05/13/20 12:[address]: Lyla Campbell DEPT: SURGICAL PATHOLOGY RECD BY: Abigail Torres ENTERED: 05/14/20 08:14 SP TYPE: FALL TUBES OTHR DR: No Primary Care Phys Tissues: Fallopian tube Procedures: Surgery Specimen Level II HEADER OPERATION: Laparoscopic salpingectomy PRE-OP DIAGNOSIS: Sterilization TISSUE SUBMITTED: Bilateral fallopian tubes MICROSCOPIC DIAGNOSIS Bilateral fallopian tubes, salpingectomy: Bilateral fallopian tubes including fimbrial ends, no pathologic diagnosis. SJ:dulce maria 05/17/20 MICROSCOPIC DESCRIPTION Slides are reviewed. GROSS DESCRIPTION Received in fixative is one container labeled with the patient's name and designated bilateral fallopian tubes. The specimen consists of two fallopian tubes with an average length of 7 cm and has an average diameter of 0.6 cm. Both fallopian tubes have normal fimbriated ends. No mass lesions are identified. Freight Forwarder sections are submitted in two cassettes as follows: 1 - one fallopian tube, 2 - the other fallopian tube. / AM:dulce maria 05/14/20 TC:4 [facility]: [id number] x2
--- NOTE | 2020-05-13 13:39 | PCM.DC.TUB ---
Discharge Diet: No Restrictions - Increase fluid intake for the next 48 hours. Discharge Activity: Return to Normal Activity, May Drive - when you are no longer taking pain/narcotic meds., May Shower, May Take a Tub Bath - in 7 days Additional Activity Instructions:: Ambulate often the next week after surgery. Nothing in the vagina for 5 days. Call your doctor if your incision/area has: Continuous Slow Oozing, Sudden Increased Bleeding, Increased Pain/ Swelling, Increased Redness, Foul Smelling Discharge Call your doctor if you observe: Fever of 101 or Higher, Using more than one pad per hour Cleanse incision/area with: Soap & Water, - - your incisions have skin glue, it can get wet. It will fall off on its own Allergies/Adverse Reactions: Allergies No Known Allergies Allergy (Verified 05/13/20 11:30) Medications to take at Discharge Fluoxetine [Prozac] 20 mg PO DAILY 04/22/20 Prenatabs FA 1 tab PO DAILY 04/22/20 Levothyroxine [Synthroid] 175 mcg PO DAILY@0600 tab 04/29/20 Hydrocodone Bitart/Apap 5-325 [[place] 5MG-325MG] 1 tablet PO Q6H PRN PRN 3 Days #6 tablet 05/13/20 Ibuprofen [Motrin] 600 mg PO Q6H PRN #30 tab 05/13/20 The following prescriptions were given: Ibuprofen [Motrin] 600 mg PO Q6H PRN #30 tab PRN Reason: Pain Transmission Status: Pending to [facility] Hydrocodone Bitart/Apap 5-325 [[place] 5MG-325MG] 1 tablet PO Q6H PRN PRN 3 Days #6 tablet PRN Reason: Pain Transmission Status: Sent to [facility] Orders to be completed after discharge: ,Urine Time Frame: 05/13/20, Facility: [facility], Location: Laboratory Primary Care Physician: Care Physician,No Primary [Primary Care Provider] - Test Results: Test results from this visit will be discussed in further detail at your follow-up appointment, if applicable. Please Follow Up With: Lyla Campbell MD - [phone] When: in our office for your exam or as needed
[2020-05-13] MEDS: Bupivacaine Mpf 0.5% 30 ML VIAL (14:00)
--- NOTE | 2020-05-13 14:02 | OP.PCM_ITS ---
Report of Operation Date of Procedure: 05/13/20 Pre-Operative Diagnosis: sterilization request Post-Operative Diagnosis: same Surgery/Procedure Performed:: Laparoscopic bilateral salpingectomy Description of Surgical Findings:: Normal uterus, tubes and ovaries. vessel captain: Marcy Gonzalez Type of Anesthesia:: General Anesthesiologist: Mayito Nicole Special Medications: none Specimen's removed: bilateral fallopian tubes Drains: none Estimated Blood Loss (mL): 10 Fluids Replaced: 500 cc Description of Procedure: The patient was taken to the operating room where she was prepped and draped in the dorsolithotomy position. A weighted speculum was placed in the vagina and the anterior lip of the cervix was grasped with a tenaculum. The Alie uterine manipulator was placed and the remainder of the instruments were removed from the vagina. Attention was turned to the abdomen. All port sites were infiltrated with 0.5% Marcaine before skin incisions were made. A 5 mm intraumbilical incision was made. The anterior abdominal wall was tented up with 2 towel clamps while a 5 mm blade less trocar and sleeve were directly inserted. Intraperitoneal placement was confirmed with the laparoscope. The pneumoperitoneum was created and the underlying abdominal contents were intact. The patient was placed in Trendelenburg. Right and left lower quadrant ports were placed under direct visualization lateral to the inferior epigastric vessels. The bowel was swept away and the above findings were noted. The LigaSure device was used to clamp seal and transect the antimesenteric portions of the right tube to the cornual insertion of the uterus. The tube was amputated from the uterus and the pedicles were all confirmed to be hemostatic. The same procedure was performed on the contralateral side. The specimens were brought out through a 5 mm port. The pedicles were again examined and found to be hemostatic. The lateral ports were removed under direct visualization and no active bleeding was noted. The pneumoperitoneum was released. The skin incisions were closed with Monocryl suture in a subcuticular fashion and skin glue by the COMPUTER TECHNOLOGY TEACHER. The vaginal instruments were removed and the vaginal sweep was completed by me. The procedure was performed by me with assistance other than as dictated above. All sponge and needle counts were correct and the patient was taken to the recovery room in stable condition. Start time 1345 Stop time 1402 Grafts/Implants Used: none - Complications none - Admit VTE Documentation VTE Present on Admission: No VTE Mechan Device Prophylaxis: SCD's VTE Pharm Prophylaxis ordered?: No Reason prophylaxis not ordered:: Palliative Care
[2020-05-13 14:17] VITALS: BP 110/81; BP 124/82; PULSE 61; RESP 20; TEMP 36; O2SAT 100
[2020-05-13 14:30] VITALS: BP 106/74; BP 124/82; PULSE 62; RESP 18; O2SAT 100
[2020-05-13 14:43] VITALS: BP 116/83; BP 124/82; PULSE 69; RESP 18; TEMP 35.8; O2SAT 100
[2020-05-13 15:47] VITALS: BP 124/82; BP 128/82; PULSE 72; RESP 16; TEMP 36.2; O2SAT 98
== END 2020-05-13 15:57 | disposition home or self-care (01) ==
LOC: SDC 11:02 → AC 11:03
PROVIDERS: Referring Provider Obstetrics & Gynecology; Visit Provider Obstetrics & Gynecology
PROC: (CPT 58661; principal; 2020-05-13 12:25)
DX: Z30.2 Encounter for sterilization (principal); E03.9 Hypothyroidism, unspecified; F32.9 Major depressive disorder, single episode, unspecified; I10 Essential (primary) hypertension; Z79.899 Other long term (current) drug therapy
CPT/HCPCS: 58661; 84703; 85027; 88302; J7120